=== PATIENT | male | born 1990 | race Hispanic/Latino ===

== ENCOUNTER 2019-10-08 00:41 | Inpatient (IN) | payer MEDICAID, OTHER ==
[~2019-10-08] VITALS: Ht 180.3 cm; Wt 97.7 kg
[2019-10-08] MEDS ORDERED: ONDANSETRON HCL 4 MG/2 ML VIAL ONE (01:08)
[2019-10-08] MEDS ORDERED: MORPHINE SULFATE 4 MG/1ML SYG ONE ×2 (01:08→01:35)
[2019-10-08 01:33] LABS: HEMATOCRIT 39.5 % (42-54); MEAN CORPUSCULAR HEMOGLOBIN 29.7 pg (27.0-33.0); RED BLOOD CELL COUNT(AUTO) 4.54 MIL/uL (4.50-6.20); WHITE BLOOD COUNT (AUTO) 15.5 K/uL (4.8-10.8)
[2019-10-08 01:34] LABS: BASOPHILS % (AUTO) 0.3 % (0.0-5.0); LYMPHOCYTES % (AUTO) 25.1 % (21.0-51.0); MEAN CORPUSCULAR HGB CONC 34.2 g/dL (32.0-36.0); MONOCYTES % (AUTO) 7.9 % (3.0-13.0); NEUTROPHILS % (AUTO) 64.3 % (40.0-77.0); PLATELET COUNT (AUTO) 206 K/uL (130-400); RED CELL DISTRIBUTION WIDTH 12.1 % (11.0-15.5)
[2019-10-08 01:42] LABS: CREATININE 1.5 mg/dL (0.5-1.5); POTASSIUM 3.4 mmol/L (3.5-5.1)
[2019-10-08 01:46] LABS: INR 0.89 (0.85-1.15); PARTIAL THROMBOPLASTIN TIME 24.3 SEC (26.3-35.5); PROTHROMBIN TIME 9.7 SEC (9.6-11.6)
[2019-10-08 02:11] LABS: APPEARANCE,URINE Clear (CLEAR); BILIRUBIN,URINE Negative (NEGATIVE); COLOR,URINE Yellow (YELLOW); GLUCOSE, URINE (UA) Negative (NEGATIVE); KETONES,URINE Negative (NEGATIVE); LEUKOCYTE ESTERASE ,URINE Trace (NEGATIVE); NITRATE,URINE Negative (NEGATIVE); OCCULT BLOOD,URINE Large (NEGATIVE); PROTEIN,URINE Trace mg/dL (NEGATIVE); UROBILINOGEN,URINE 0.2 mg/dL (0.2-1.0)
[2019-10-08] MEDS ORDERED: OCTYL 2-CYANOACRYLATE 1 EACH TP ONE (02:24)
[2019-10-08 02:27] LABS: BACTERIA,URINE Rare /HPF (None Seen); MUCUS,URINE Rare LPF (None Seen); SQUAMOUS EPITHELIAL CELL,UR 0-2 /HPF (0-2); WBC,URINE 0-1 /HPF (0-1)
[2019-10-08] MEDS ORDERED: LEVOFLOXACIN 500 MG/D5W 100 ML 100 ML ONE (03:12)
[2019-10-08] MEDS: SODIUM CHLORIDE 0.9% 1000ML 1,000 ML IV SCH ×2 (03:45→17:39)
[2019-10-08] MEDS ORDERED: ONDANSETRON HCL 4 MG/2 ML VIAL IV PRN (03:45)
[2019-10-08] MEDS ORDERED: MORPHINE SULFATE 2 MG/ML 1ML SYG IVP PRN (03:45)
[2019-10-08] MEDS ORDERED: LEVOFLOXACIN 500 MG/D5W 100 ML 100 ML IV SCH (03:45)
[2019-10-08 04:05] VITALS: BP 127/84
[2019-10-08] MEDS: LIDOCAINE HCL-MPF 1% 2ML VIAL IV PRN ×2 (05:44→17:37)
[2019-10-08] MEDS: POTASSIUM CHLORIDE 20MEQ/100ML 100 ML IV PRN ×2 (05:44→17:37)
[2019-10-08] MEDS: FAMOTIDINE/PF 20 MG/2 ML VIAL IV SCH ×2 (10:42→21:11)
[2019-10-08 11:04] VITALS: BP 119/70
[2019-10-08] MEDS: CEFTRIAXONE SODIUM 1 GM IVP SCH (13:35)
[2019-10-08] MEDS ORDERED: TAMSULOSIN HCL 0.4 MG CAP.ER.24H PO SCH (14:00)
--- NOTE | 2019-10-08 14:24 | NUR ---
INITIAL ASSESSMENT ATTEMPTED, NO WORKING NUMBERS CALL TO [phone] PTS HOME NUMBER- NOT IN SERVICE CALL TO [phone]- NUMBER OF MOM LISTED ON FACE SHEET- NOT IN SERVICE CM TO FOLLOW UP Addendum: 10/08/19 at 1426 by KATIE DAVALOS RN CM Amended: Links added.
[2019-10-08 17:29] VITALS: BP 121/70
[2019-10-08 20:00] VITALS: BP 131/66
[2019-10-08 23:50] VITALS: BP 120/64
[2019-10-09] MEDS: CEFTRIAXONE SODIUM 1 GM IVP SCH ×2 (00:34→11:22)
[2019-10-09] MEDS: SODIUM CHLORIDE 0.9% 1000ML 1,000 ML IV SCH ×2 (02:10→05:32)
[2019-10-09 04:00] VITALS: BP 99/58
[2019-10-09 05:08] LABS: BASOPHILS % (AUTO) 0.4 % (0.0-5.0); EOSINOPHILS % (AUTO) 3.1 % (0.0-8.0); HEMATOCRIT 39.4 % (42-54); MEAN CORPUSCULAR HEMOGLOBIN 29.2 pg (27.0-33.0); MEAN CORPUSCULAR HGB CONC 33.5 g/dL (32.0-36.0); MEAN CORPUSCULAR VOLUME 87.2 fL (79-99); MONOCYTES % (AUTO) 7.5 % (3.0-13.0); NEUTROPHILS % (AUTO) 54.9 % (40.0-77.0); PLATELET COUNT (AUTO) 191 K/uL (130-400); RED BLOOD CELL COUNT(AUTO) 4.52 MIL/uL (4.50-6.20); RED CELL DISTRIBUTION WIDTH 12.1 % (11.0-15.5)
[2019-10-09 05:30] LABS: ALANINE AMINOTRANSFERASE 26 U/L (12-78); ALBUMIN 3.6 g/dL (3.5-5.0); ASPARTATE AMINOTRANSFERASE 18 U/L (10-37); BILIRUBIN,TOTAL 0.4 mg/dL (0.2-1.0); CARBON DIOXIDE 27 mmol/L (21-32); CHLORIDE 102 mmol/L (101-111); CREATININE 1.2 mg/dL (0.5-1.5); GLOMERULAR FILTR. RATE CALC 77 mL/min (>60); GLUCOSE,RANDOM 103 mg/dL (70-105); POTASSIUM 3.6 mmol/L (3.5-5.1); SODIUM SERUM 136 mmol/L (136-145); TOTAL PROTEIN, SERUM 6.9 g/dL (6.0-8.3); UREA NITROGEN, BLOOD 10 mg/dL (7-18)
[2019-10-09] MEDS: POTASSIUM CHLORIDE 20MEQ/100ML 100 ML IV PRN (05:48)
[2019-10-09] MEDS: LIDOCAINE HCL-MPF 1% 2ML VIAL IV PRN (05:48)
--- NOTE | 2019-10-09 06:02 | NUR ---
ASLEEP Pt sleeping,when aroused to give Kcl supplement,he states,"I don't want to be here".Informed him plan for today.He said he will tell the doctor he wants to leave.
[2019-10-09 07:30] VITALS: BP 123/70
[2019-10-09] MEDS: FAMOTIDINE/PF 20 MG/2 ML VIAL IV SCH (09:00)
[2019-10-09] MEDS ORDERED: IOHEXOL 350 MG/ML 100ML INFUS..BTL IV ONE (09:24)
[2019-10-09 11:00] VITALS: BP 125/70
--- NOTE | 2019-10-09 11:22 | NUR ---
DCP: HOME Sw met with pt who states he works in [place] and comes home to father's home on Weekends. Pt states father Collin Champagne has no cell and he has not spoke to mother Jess in a very long time. Pt does not know current # for mom. Pt is independent, no DME or in home care services. No PCP or pharmacy. Plan is home to dadalex and back to [facility]. Addendum: 10/09/19 at 1125 by ZACARIAS PARISI SS Amended: Links added.
[2019-10-09 16:00] VITALS: BP 124/67
[2019-10-09] MEDS ORDERED: CEPH500B PO (18:13)
--- NOTE | 2019-10-09 19:02 | NUR ---
NONE PATIENT DECLINED TO HAVE LEFT NEPHROSTOMY TUBE PLACEMENT SCHEDULED FOR 10/10/2019. DR. GONCALVES AND DR. CHAO ADVISED. PATIENT SIGNED PROCEDURE REFUSAL FORM FOR PROCEDURE. COLORED LIQUID PLASTIC APPLIER CINDY WAS NOTIFIED TO CANCEL TOMORROWS SCHEDULED PROCEDURE.
--- NOTE | 2019-10-09 19:33 | NUR ---
PATIENT DISCHARGE PATIENT DISCHARGED, IV DISCONTINUED, CATHLON INTACT, BLEEDING CONTROLLED, PATIENT TOLERATED WITHOUT INCIDENT. DISCUSSED WITH PATIENT THE NEED TO FOLLOW UP WITH DR. GONCALVES AND THAT HE NEEDS TO CALL TOMORROW TO SCHEDULE APPOINTMENT. PATIENT STATED HE WOULD TAKE THE PRESCRIPTION TO [facility] IN [place] TO BE FILLED.
== END 2019-10-09 19:35 | disposition home or self-care (01) | DRG 694 ==
LOC: EDH 00:41 → EDHIP 00:42 → 3CH 03:54
PROVIDERS: ADMIT Internal Medicine; ATTEND Internal Medicine
DX: N13.2 Hydronephrosis with renal and ureteral calculous obstruction (principal); N50.812 Left testicular pain; D72.829 Elevated white blood cell count, unspecified; R31.9 Hematuria, unspecified; Z53.29 Procedure and treatment not carried out because of patient's decision for other reasons
CPT/HCPCS: 36415; 74176; 74400; 76870; 80048; 80053; 81001; 83735; 84145; 85025; 85610; 85730; 87088; 99291; G0378; J0696; J1956; J2270; J2405; J3480; J3490; J7030; Q9967

== ENCOUNTER 2025-05-29 16:15 | Emergency (ER) | payer SELFPAY ==
[~2025-05-29] VITALS: Ht 180.3 cm; Wt 113.4 kg
[~2025-05-29 16:15] MED LIST: CEPH500B PO
[2025-05-29 16:53] LABS: RAPID GROUP A STREP negative (NEGATIVE)
[2025-05-29 16:54] LABS: SARS-CoV-2, RNA, NAAT NEGATIVE SARS CoV-2 (NEGATIVE)
[2025-05-29 17:03] LABS: INFLUENZA TYPE A Negative For Type A (NEGATIVE); INFLUENZA TYPE B Negative For Type B (NEGATIVE)
[2025-05-29 17:13] LABS: IMMATURE GRANULOCYTE ABSOLUTE 0.15 K/uL (0-1); NUCLEATED RED BLOOD CELLS 0.0 % (0.0-0.19); PLATELET COUNT (AUTO) 412 K/uL (130-400); RED BLOOD CELL COUNT(AUTO) 4.45 MIL/uL (4.50-6.20); RED CELL DISTRIBUTION WIDTH 12.9 % (11.0-15.5); WHITE BLOOD COUNT (AUTO) 15.1 K/uL (4.8-10.8)
[2025-05-29 17:19] LABS: CREATININE 1.2 mg/dL (0.5-1.3); GLOMERULAR FILTR. RATE CALC 81.0 mL/min (>90); GLUCOSE,RANDOM 139.0 mg/dL (70-105); SODIUM SERUM 136.0 mmol/L (136-145); UREA NITROGEN, BLOOD 11.0 mg/dL (7-18)
--- NOTE | 2025-05-29 17:31 | ERN ---
ED Note History of Present Illness Stated Complaint: COUGH Chief Complaint: Cough Time Seen by MD: 16:25 Time Seen by Midlevel: 16:28 Dictation: 35-year-old male with no medical history coming in with complaints of cough, chills, fever and chest pain for one week. Patient states his kids were sick with similar symptoms. Patient states the chest pain is worse upon coughing. D enies any medical or surgical history. Denies any shortness the breath, diaphoresis, nausea, vomiting. Allergies: Coded Allergies: No Known Allergies (Unverified Allergy, Unknown, 10/08/19) No Known Drug Allergies (Unverified Allergy, Unknown, 10/08/19) Home Meds Active Scripts Cephalexin Monohydrate (Keflex) 500 Mg Cap, 500 MG PO BID for 7 Days, #14 CAP 0 Refills Prov:MATTIE CHAO MD 10/09/19 Past Medical History Past Medical History: No Pertinent History Surgical History: None Review of System Dictation Constitutional: Negative for fever,chills, and weight loss Eyes: Negative for injury, pain,redness, and discharge ENT: Negative for injury,pain or swelling Cardiovascular: Complaining of chest pain Respiratory: Complaining of cough Abdomen/GI: Negative for abdominal pain, nausea, vomiting, diarrhea, and constipation Back: Negative for injury and pain : Negative for injury, bleeding and discharge MS/Extremity: Negative for injury and deformity Skin: Negative for rash, and discoloration Neuro: Negative for headache, weakness, numbness, tingling, and seizure Psych: Negative for suicide ideation, homicidal ideation, and hallucinations Review of Systems: was completed Initial Vital Sign VS Vital Signs Date Time Temp Pulse Resp B/P (MAP) Pulse Ox O2 Delivery O2 Flow Rate FiO2 05/29/25 16:17 98.4 106 18 127/61 99 Room Air 0 05/29/25 18:17 21 Physical Exam Dictation General: awake, alert, NAD Head/Face: Normocephalic, atraumatic Eyes: PERRL, EOMI, vision at baseline ENT: oral cavity clear, TMs clear, no signs of infection Neck: Trachea midline, supple, no nuchal rigidity Cardiovascular: RRR, normal S1/S2, No MRGs, no JVD Respiratory: CTAB, no respiratory distress, No rales or wheezes Abdomen: Soft, non-tender, non-distended, normal bowel sounds, no guarding or r ebound. Skin: Warm, dry, normal turgor, no rash MS/Extremity: Pulses equal, no cyanosis, neurovascular intact, FROM Neuro: COAx4, GCS 15, strength 5/5, CN 2-12 intact, normal cerebellar exam, normal gait, Psych: Normal behavior, mood, and affect normal Results (Laboratory/Radiology) Laboratory/Radiology Laboratory Tests Test 05/29/25 16:25 05/29/25 17:06 Influenza Type A Antigen Negative For Type A Influenza Type B Antigen Negative For Type B SARS-CoV-2, RNA, NAAT NEGATIVE SARS CoV-2 Group A Streptococcus Rapid negative (NEGATIVE) White Blood Count 15.1 K/uL (4.8-10.8) H Red Blood Count 4.45 MIL/uL (4.50-6.20) L Hemoglobin 13.2 g/dL (14.0-18.0) L Hematocrit 39.1 % (42-54) L Mean Corpuscular Volume 87.9 fL (79-99) Mean Corpuscular Hemoglobin 29.7 pg (27.0-33.0) Mean Corpuscular Hemoglobin Concent 33.8 g/dL (32.0-36.0) Red Cell Distribution Width 12.9 % (11.0-15.5) Platelet Count 412 K/uL (130-400) H Mean Platelet Volume 9.1 fL (7.5-10.5) Immature Granulocyte % (Auto) 1.0 % (0-1) Neutrophils (%) (Auto) 73.5 % (40.0-77.0) Lymphocytes (%) (Auto) 17.1 % (21.0-51.0) L Monocytes (%) (Auto) 7.5 % (3.0-13.0) Eosinophils (%) (Auto) 0.6 % (0.0-8.0) Basophils (%) (Auto) 0.3 % (0.0-5.0) Neutrophils # (Auto) 11.1 K/uL (1.8-7.7) H Lymphocytes # (Auto) 2.6 K/uL (1.0-4.8) Monocytes # (Auto) 1.1 K/uL (0.1-1.0) H Eosinophils # (Auto) 0.09 K/uL (0.00-0.70) Basophils # (Auto) 0.05 K/uL (0.00-0.20) Absolute Immature Granulocyte (auto 0.15 K/uL (0-1) Nucleated Red Blood Cells 0.0 % (0.0-0.19) Sodium Level 136 mmol/L (136-145) Potassium Level 3.8 mmol/L (3.5-5.1) Chloride Level 101 mmol/L (101-111) Carbon Dioxide Level 26 mmol/L (21-32) Blood Urea Nitrogen 11 mg/dL (7-18) Creatinine 1.2 mg/dL (0.5-1.3) Glomerular Filtration Rate Calc 81 mL/min (>90) Random Glucose 139 mg/dL (70-105) H Total Calcium 9.1 mg/dL (8.5-10.1) Troponin I High Sensitivity < 4 ng/L (4-75) L Labs Reviewed?: Yes EKG Comment: EKGs did not at 4:03 p.m.. Sinus tachycardia at rate of 101. No STEMI interpreted by ER MD. X-RAY Comment: [address] [id number] IMAGING REPORT Signed PATIENT: KATHY TADEO MR#: [id number] : 1990 SEX: M AGE: 35 LOCATION: [facility] ORDER [id number] STATUS: REG ER REPORT#: [id number] SERVICE 1637 REASON: cough ORDERING PHYSICIAN: ZEINA BOWLES CNP PROCEDURE: CXR1VW - CHEST 1VW EXAM CR chest, 1 view CLINICAL HISTORY Cough TECHNIQUE Single frontal radiograph of the chest COMPARISON None provided FINDINGS LUNGS There is an inhomogeneous airspace opacity in the left paracardiac region, which may represent infection, atelectasis, or aspiration in the appropriate clinical context. The remaining visualized lung soto are clear without additional focal consolidation. PLEURAL SPACES No pleural effusion or pneumothorax is identified. MEDIASTINUM Cardiac size and mediastinal contours are within normal limits. BONES No acute or aggressive osseous lesion is identified. Visualized soft tissues are unremarkable. IMPRESSION * Inhomogeneous airspace opacity in the left paracardiac region, suspicious for pneumonia versus atelectasis or aspiration depending on clinical correlation. * No pleural effusion or pneumothorax. /[place] DICTATED BY: MARIA DEL CARMEN HOLCOMB Jr., MD DATE: 05/29/251903 ELECTRONICALLY SIGNED BY: MARIA DEL CARMEN HOLCOMB Jr., MD DATE: 05/29/251903 ED Course ED Course Orders Procedure Category Date Status Time 12 Lead Ekg Tracing- EKG 05/29/25 Logged Technical 16:30 Influenza Type A & B, LAB 05/29/25 Complete Rapid 16:30 Covid Rna Naat LAB 05/29/25 Complete 16:30 Rapid (Group A Strep) LAB 05/29/25 Complete 16:30 Cbc With Differential LAB 05/29/25 Complete 16:37 Basic Metabolic Panel LAB 05/29/25 Complete 16:37 Troponin I High LAB 05/29/25 Complete Sensitivity 16:37 Chest 1vw RAD 05/29/25 Resulted 16:37 Benzonatate 100 Mg PHA 05/29/25 Complete Capsule (Tessalon 100 16:38 Guaifenesin/Dextromethorphan PHA 05/29/25 Complete (Mucinex Dm 17:00 Ketorolac PHA 05/29/25 Complete Tromethamine 15mg/Ml 17:00 Dexamethasone 4mg/Ml PHA 05/29/25 Complete 1ml Vial (Dexametha 16:38 Ondansetron Odt 4mg PHA 05/29/25 Complete Tab (Zofran 4mg Odt) 18:03 Ondansetron Odt 4mg PHA 05/29/25 Logged Tab (Zofran 4mg Odt) 18:30 Current Medications Medications (Trade) Dose Ordered Sig/Minor Route PRN Reason Start Time Stop Time Status Last Admin Dose Admin Benzonatate (Tessalon 100mg Caps) 200 mg ONCE STAT PO 05/29/25 16:38 05/29/25 16:42 DC 05/29/25 17:53 Dexamethasone Sodium Phosphate (dexaMETHasone 4MG/ML 1ML VIAL) 8 mg ONCE STAT IM 05/29/25 16:38 05/29/25 16:42 DC 05/29/25 18:13 Guaifenesin/ Dextromethorphan (MUCinex DM 1 EACH TAB.SR.H) 1 each ONCE ONCE PO 05/29/25 17:00 05/29/25 17:01 DC Ketorolac Tromethamine (toRADol) 15 mg ONCE ONCE IM 05/29/25 17:00 05/29/25 17:01 DC 05/29/25 18:13 Ondansetron HCl (zoFRAN 4MG ODT) 4 mg ONCE ONCE SL 05/29/25 18:30 05/29/25 18:31 UNV Ondansetron HCl (zoFRAN 4MG ODT) 4 mg STK-MED ONCE .ROUTE 05/29/25 18:03 05/29/25 18:03 DC Vital Signs Date Time Temp Pulse Resp B/P (MAP) Pulse Ox O2 Delivery O2 Flow Rate FiO2 05/29/25 18:17 100.6 99 18 130/82 96 Room Air* 0 21 05/29/25 16:17 98.4 106 18 127/61 99 Room Air 0 Medical Decision Making MDM MDM: 35-year-old male with no past medical history presents with one week of cough, chest pain, chills and fever. Reports kids at home are sick with similar respiratory symptoms. No history of lung disease, immunocompromise or recent antibiotics. Denies hemoptysis, leg swelling, palpitations, syncope or GI complaints. In ER afebrile, no hypoxia, no tachypnea, lung with coarse sounds left lower lung field. No respiratory distress. CBC shows white count of 15, negative for flu and influenza for strep. Chest x- ray reads possible left lower lobe pneumonia and chemistry unremarkable. Vital signs are stable throughout the stay. Patient's patient's most consistent with community-acquired pneumonia, low risk outpatient type. Patient hemodynamically stable on with the respiratory compromise. No indication for admission. Patient will be discharged home on antibiotics appropriate for camp. Educated to do supportive fluids and antipyretics rest to return for worsening dyspnea, chest pain fever or inability to tolerate p.o.. Educated to return to the hospital if he sees no improvement within the next 42-72 hours otherwise follow up with your primary care doctor. Differential diagnosis: Cap, viral URI, bronchitis Rationale: Tests considered and ordered secondary to shared decision making include: Previous outside records reviewed: Old ER visits. Risk of complication and/or morbidity or mortality of patient management: None Medications-Per medication reconciliation Need for hospitalization: Patient does not meet criteria for hospitalization. Need for emergency major/minor surgery: No There are no social concerns with this patient. Prescription drug management Prescriptions will include symptomatic care Patient's prior external medical records from other ER visits were reviewed by me as indicated. Prior testing and results from previous visits were reviewed. Prior tests were taken into account with medical decision making and resource u tilization, independent historian/historians were used to obtain complete medical history. I independently interpreted the test that were performed, results were reviewed by me and considered findings on radiology if ordered. Medical management and examination interpretation discussions were had by me with other qualified healthcare professionals as indicated for the patient's ca re. DX & DISP Disposition: Discharge Departure Impression: Primary Impression: CAP (community acquired pneumonia) Condition: Stable Scripts Azithromycin (Azithromycin) 250 Mg Tablet 1 TAB PO AD for 5 Days, #6 TAB 0 Refills 2 the first day followed by 1 for days 2-5 Prov: ZEINA BOWLES CNP 05/29/25 Benzonatate (Benzonatate) 200 Mg Capsule 1 CAP PO TIDP PRN for cough for 7 Days, #21 CAP 0 Refills Prov: ZEINA BOWLES CNP 05/29/25 Additional Instructions: Take your antibiotics as prescribed. If you do not see any improvement in the next 42-72 hours return to the hospital. Otherwise follow up with your primary care doctor with a in the next 2-3 days. Referrals: SELF,REFERRAL (PCP) Time of Disposition: 18:24 I have reviewed the case, and I agree with, Diagnosis and Plan ZEINA BOWLES CNP May 29, 2025 17:31
[2025-05-29] MEDS: BENZONATATE 100 MG CAPSULE PO STA (17:53)
--- NOTE | 2025-05-29 18:04 | HMCIMG ---
EXAM CR chest, 1 view CLINICAL HISTORY Cough TECHNIQUE Single frontal radiograph of the chest COMPARISON None provided FINDINGS LUNGS There is an inhomogeneous airspace opacity in the left paracardiac region, which may represent infection, atelectasis, or aspiration in the appropriate clinical context. The remaining visualized lung soto are clear without additional focal consolidation. PLEURAL SPACES No pleural effusion or pneumothorax is identified. MEDIASTINUM Cardiac size and mediastinal contours are within normal limits. BONES No acute or aggressive osseous lesion is identified. Visualized soft tissues are unremarkable. IMPRESSION * Inhomogeneous airspace opacity in the left paracardiac region, suspicious for pneumonia versus atelectasis or aspiration depending on clinical correlation. * No pleural effusion or pneumothorax. /[place]
[2025-05-29] MEDS ORDERED: BENZ200C53 PO (18:23)
[2025-05-29] MEDS ORDERED: AZIT250T9 PO (18:23)
[2025-05-29 18:55] VITALS: BP 125/80; PULSE 99; RESP 18; TEMP 100.2; O2SAT 97
--- NOTE | 2025-05-31 11:17 | EKG ---
[facility] Test Date: 2025-05-29 Test Time: 16:03:15 Pat Name: KATHY TADEO Department: ED Room: Gender: Medicare Nurse: [facility] : 1990 Requested By: JOSE MURGUIA Order Number: [id number] Reading MD: Leatha Brown Measurements Intervals [place] Rate: 101 P: 62 [place]: 135 QRS: 11 QRSD: 88 T: 37 QT: 321 QTc: 417 Interpretive Statements Sinus tachycardia Probable left atrial enlargement No previous ECG available for comparison Electronically Signed On 06-03-2025 08:50:21 SENIOR STATISTICIAN by Leatha Brown Please click the below link to view image of tracing.
== END 2025-05-29 19:05 | disposition home or self-care (01) ==
LOC: EDH 16:15
DX: J18.9 Pneumonia, unspecified organism (principal); Z20.822 Contact with and (suspected) exposure to COVID-19
CPT/HCPCS: 99285; 71045; 87635; 84484; 80048; 85025; 87880; 87804 ×2; 36415; 96372 ×3; 93005; J1100 ×2; J1885; J0696